=== PATIENT | male | born 1980 | race Two or more races ===

== ENCOUNTER 2024-12-13 10:11 | Emergency (ER) | payer MEDICAID, SELFPAY ==
[2024-12-13 10:24] VITALS: BP 170/90; PULSE 74; RESP 19; TEMP 36.9; O2SAT 97; BMI 30.2
--- NOTE | 2024-12-13 10:30 | PD.EDRME ---
Rapid Medical Screening Exam RME Arrival date/time: 12/13/24 10:11 Chief Complaint: Extremity Injury, Upper Time Seen by Provider: 12/13/24 10:30 Vital signs: Vital Signs Temperature 98.4 F 12/13/24 10:24 Pulse Rate 74 12/13/24 10:24 Respiratory Rate 19 12/13/24 10:24 Blood Pressure 170/90 H 12/13/24 10:24 Pulse Oximetry (%) 97 12/13/24 10:24 Oxygen Delivery Method Room Air 12/13/24 10:24 RME Narrative: Patient with a past medical history of hepatitis C previously completed a course of Harvoni, IV drug abuse with heroin presents to the ER complaining of swelling to his arms bilaterally and right leg as well as increased pain to his right upper extremity. Denies fever vomiting. I briefly performed a screening evaluation to initiate work-up and expedite care. Complete history, physical exam, and plan of care is deferred to the provider in the main ED.
--- NOTE | 2024-12-13 10:31 | XR_ITS ---
Examination: Venous duplex upper extremity sonogram, bilateral. Date and time of exam: December 13, 2024, 10:50 a.m. INDICATIONS: Bilateral arm swelling and pain 8 months, drug abuse history Technique: Multiple sonographic images of the deep venous system have been obtained. B-mode/2-D grayscale imaging of vascular structures and Doppler spectral analysis (waveforms) and color performed Both legs are examined. Findings: Deep venous systems do not demonstrate abnormal echogenicity. All visualized deep veins exhibit compressibility. All visualized deep veins exhibit augmentation. Impression: Negative for deep vein thrombosis Lymph nodes in the right axilla and right forearm, likely reactive
--- NOTE | 2024-12-13 10:34 | XR_ITS ---
EXAMINATION: PA chest single view TECHNIQUE: Upright PA chest single view Date and time: December 13, 2024, 1036 hours, comparison October 15, 2013 Indications: Chest pain upper extremity swelling 8 months FINDINGS: Normal heart size The lungs are clear. No CHF or pneumonia. Intact osseous structures IMPRESSION: No active disease
--- NOTE | 2024-12-13 11:34 | EKG_ITS ---
[facility] Test Date: 2024-12-13 Pat Name: ABRAHAM BRASHER Department: Room: - Gender: Male [employer]: : 1980 Requested By: Troy Hicks Order Number: [id number] Reading MD: Troy Hicks Measurements Intervals [place] Rate: 82 P: 71 SD: 150 QRS: 68 QRSD: 90 T: 57 QT: 348 QTc: 407 Interpretive Statements SINUS RHYTHM No previous ECG available for comparison /store/S0/[id number]
--- NOTE | 2024-12-13 12:03 | PC.NURSE ---
pt called back x1 @ 1203 to have an EKG done. no response from lobby or outside
[2024-12-13 12:22] LABS: Basophils # (Auto) 0.1 Thou/mm3 (0.0-0.2); Basophils % (Auto) 0 % (0-2.5); Eosinophils # (Auto) 0.3 Thou/mm3 (0.0-0.5); Eosinophils % (Auto) 2 % (0-10); Hematocrit 37.7 % (41.0-53.0); Hemoglobin 12.7 g/dL (13.5-16.0); Immature Granulocytes Auto 0.10 Thou/mm3 (0.00-0.00); Lymphocytes # (Auto) 3.0 Thou/mm3 (1.0-4.8); Lymphocytes % (Auto) 19 % (10-50); Mean Corpuscular HGB Conc 33.7 g/dl (31.0-37.0); Mean Corpuscular Hemoglobin 30.7 pg (25.0-35.0); Mean Corpuscular Volume 91 fL (80-100); Monocytes # (Auto) 0.9 Thou/mm3 (0.0-0.8); Monocytes % (Auto) 5 % (0-12); Neutrophils # (Auto) 12.1 Thou/mm3 (1.8-7.7); Neutrophils % (Auto) 73 % (37-80); Nucleated Red Blood Cell # 0.00 Thou/mm3 (0.00-0.00); Nucleated Red Blood Cell % 0 /100 WBC (0); Platelet Count 368 Thou/mm3 (140-440); RDW Standard Deviation 41.7 fL (35.1-43.9); Red Blood Count 4.14 Miln/mm3 (4.50-5.90); White Blood Count 16.5 Thou/mm3 (3.8-10.6)
[2024-12-13 12:38] LABS: Alanine Aminotransferase 31 U/L (10-49); Albumin, Serum 4.2 gm/dL (3.5-5.0); Albumin/Globulin Ratio 0.9 (1.2-2.2); Alkaline Phosphatase 74 U/L (46-116); Anion Gap 7 (7-16); Aspartate Amino Transferase 28 U/L (0-34); BUN/Creatinine Ratio 14 Ratio (12-20); Bilirubin,Total 0.4 mg/dL (0.3-1.2); Blood Urea Nitrogen 11 mg/dL (9-23); Calcium 9.4 mg/dL (8.3-10.6); Calcium (Corrected) 9.4 mg/dL (8.5-10.1); Carbon Dioxide 26.3 mMol/L (20.0-31.0); Chloride 103 mMol/L (98-107); Creatinine (Component) 0.8 mg/dL (0.6-1.3); Estimated Creatinine Clearance 119.2 mL/min (>60); Globulin 4.6 gm/dL (2.3-3.5); Glucose 187 mg/dL (74-106); Osmolality,Calculated 276 (275-295); Potassium 4.2 mMol/L (3.4-5.1); Sodium 136 mMol/L (136-145); Total Protein 8.8 gm/dL (5.7-8.2); eGFR > 60 See Note
[2024-12-13] MEDS: cefTRIAXone 1,000 MG, LIDOCAINE 1% 20 ML 2.1 ML IM (13:26)
--- NOTE | 2024-12-13 13:29 | EDNOTE_ITS ---
ED General RME/HPI General Chief complaint: Extremity Injury, Upper Stated complaint: SWOLLEN PAXTON FOREARMS/HANDS Time Seen by Provider: 12/13/24 10:30 Arrival date/time: 12/13/24 10:11 CC: Swollen red right forearm HPI patient continues to inject heroin on a regular basis. The patient has chronically enlarged forearm secondary to repeated and heroin injections over the past 8-month. Patient denies fever and last injection was 2 days ago into the right forearm. No other complaints. Patient states he recently completed medication regimen for hepatitis B 3 months ago. Patient is awake alert oriented nontoxic-appearing not in any acute distress. RME / HPI RME / HPI narrative: Patient with a past medical history of hepatitis C previously completed a course of Harvoni, IV drug abuse with heroin presents to the ER complaining of swelling to his arms bilaterally and right leg as well as increased pain to his right upper extremity. Denies fever vomiting. I briefly performed a screening evaluation to initiate work-up and expedite care. Complete history, physical exam, and plan of care is deferred to the provider in the main ED. Related Data Previous Rx's ?Medication ?Instructions ?Recorded amoxicillin 875 mg-potassium 1 tab PO BID #20 tabs 02/25 clavulanate 125 mg tablet Allergies Allergy/AdvReac Type Severity Reaction Status Date / Time No Known Allergies Allergy Verified 12/13/24 10:13 Review of Systems Review of Systems Narrative Review of Systems: GEN: No fever, no chills, no weight loss EYES: No discharge, no visual changes, no pain HEENT: No ear pain, no congestion, no sore throat PULM: No shortness of breath, no cough, no congestion CV: No chest pain, no dyspnea on exertion, no palpitations GI: No nausea, no vomiting, no diarrhea, no pain, no constipation : No frequency, no urgency, no dysuria MUSC/SKEL: No joint pain, no back pain SKIN: No rash PSYCH: No hallucinations, no depression HEME/LYMPH: No easy bleeding or bruising tendencies NEURO: No weakness, no headache Past Medical History Past Medical History CARDIAC: Positive Edema and Cellulitis; Negative Congestive Heart Failure RESPIRATORY: Negative Chronic Obstructive Pulmonary Disease (COPD) GASTROINTESTINAL: Positive Hepatitis GENITOURINARY: Negative Renal Disease ENDOCRINE: Negative Diabetes Mellitus Type 1 or Diabetes Mellitus Type 2 Social History SMOKING STATUS: Current every day smoker ED Exam Narrative Physical exam: [General: Not in any acute distress Head normocephalic HEENT: Within acceptable limits Neck is supple nontender Chest equal chest rise nontender to palpation Respiratory: Clear to auscultation no wheezes crackles or rubs CV: Rate rhythm is regular no murmurs rubs or clicks Abdomen is distended secondary to body habitus soft nontender no masses positive bowel sounds all 4 quadrants Back: No CVA tenderness no spinous process tenderness from cervical spine thoracic and lumbar spine Skin: No open petechial oozing sites, no abrasions to the forearms old needle puncture sites scarred in the antecubital bilaterally. Also needle puncture sites noted bilaterally in the neck. Otherwise skin is intact no petechiae rash induration ulceration or crepitus Extremities: Bilateral forearm edema. Left forearm is mildly larger than the right, erythematous but not warm to touch. Moving all other extremities against resistance cap refill less than 2 seconds neurosensory intact Neuro: Awake alert oriented x3 Glascow coma 15 no focal deficits] Course Quality Measures none Orders Category Date Time Status EKG (ED ONLY) *Do not use* NOW Care 12/13/24 11:34 Completed EKG (ED Only) Stat Exams 12/13/24 11:34 Draft US venous doppler UE BI Stat Exams 12/13/24 10:31 Completed XR chest 1V Stat Exams 12/13/24 10:34 Completed CBC Stat Lab 12/13/24 12:11 Completed CMP [Comprehensive Metabolic Panel] Stat Lab 12/13/24 12:11 Completed cefTRIAXone [Rocephin] 1,000 mg Med 12/13/24 13:07 Discontinued Lidocaine 1% 20 ml [Xylocaine 1% 20 ML] 2.1 ml IM X1 Vital Signs Vital signs: Vital Signs Temperature 98.4 F 12/13/24 10:24 Pulse Rate 74 12/13/24 10:24 Respiratory Rate 19 12/13/24 10:24 Blood Pressure 170/90 H 12/13/24 10:24 Pulse Oximetry (%) 97 12/13/24 10:24 Oxygen Delivery Method Room Air 12/13/24 10:24 Discharge Plan Plan Patient Disposition: HOME (Self Care) Patient condition on transfer: Stable Prescriptions/Referrals Prescriptions/Med Rec: New amoxicillin-pot clavulanate 875-125 mg tablet 1 tab PO BID Qty: 20 0RF Referrals: Elba Mclaughlin, [employer] [Primary Care Provider] - In 1 week Problem List Clinical Impression: Cellulitis of forearm, right Patient/Caregiver Discharge Instructions Education Materials: Discharge Instructions for Cellulitis, ED Cellulitis Additional Instructions: Take the medications as prescribed twice a day, return in 3 to 4 days for reevaluation. Print Language: Mohawk Stand Alone Forms: Mona Award Info., Patient Portal Info Letter PA/RAFITA Supervising Physician PA/QUALIFICATIONS EXAMINER Supervising Physician: Jamie Gabriel ENP MDM Clinical Information Provided by: patient Medical Records reviewed [facility] Meds/Rx considered, not ordered None Labs/Rad/Tests considered, not ordered None Chronic Illness/Social Conditions which may negatively complicate care or outcome(s)-explain: ETOH/drugs/substance abuse EKG Interpretation EKG #1: EKG Interpretation: EKG performed at 1249 shows a ventricular rate of 82 IA interval 150 QRS of 9 0 QTc of 386 is normal sinus rhythm. Labs Labs: interpreted by id Lab(s) Interpretation(s): CBC shows a mild leukocytosis of 16.1 H&H of 12.7 and 37.7 respectively no bandemia. CMP shows no significant electrolyte imbalances other than a glucose of 187 no renal impairment transaminitis or T. bili elevation. Imaging Imaging interpretation: interpreted by id Imaging Interpretation(s): Chest x-ray is unremarkable Upper extremity ultrasounds are negative for DVT but positive for lymphedema. Medication Administration(s) none Medication Administration History Discontinued Medications Ceftriaxone Sodium 1,000 mg/ (Lidocaine HCl 2.1 ml) 0 mg IM X1 ONE Stop: 12/13/24 13:08 Last Admin: 12/13/24 13:26 Dose: 1,000 mg Documented By: DES None Diagnosis Differential Diagnosis ED Complaint MDM: Forearm cellulitis forearm abscess forearm DVT
[2024-12-13 13:41] VITALS: BP 152/77; PULSE 78; RESP 16; TEMP 37.1; O2SAT 99
== END 2024-12-13 13:42 | disposition home or self-care (01) ==
PROVIDERS: Physician Assistant; Emergency Provider Family Medicine; PCP Nurse Practitioner Women's Health
DX: L03.113 Cellulitis of right upper limb (principal)
CPT/HCPCS: 36415; 71045; 80053; 85025; 93005; 93970; 96372; 99283; J0696; J3490